=== PATIENT | female | born 1960 | race Caucasian/White ===

== ENCOUNTER 2017-10-14 16:31 | Emergency (ER) | payer MEDICAID, OTHER ==
[2017-10-14 17:30] VITALS: BP 137/72
[2017-10-14] MEDS ORDERED: Ibuprofen TAB* 600 MG PO ONE (17:47)
--- NOTE | 2017-10-14 17:52 | UC ---
Lower Extremity/Ankle HPI - HPI Summary HPI Summary: 57 year old female with right medial ankle pain and swelling. No trauma. No excessive exercise. RIGHT FOOT PAIN , SWELLING FOR THREE DAYS. NO RECALL OF INJURY. PT ADDS HER RIGHT KNEE IS PAINFUL AND SWELLING OF HER LOWER LEG WELL. No relief from OTC meds. No recent travel. No previous DVT's or family history of concern. [ End ] - History of Current Complaint Chief Complaint: UCLowerExtremity Stated Complaint: RT ANKLE Time Seen by Provider: 10/14/17 17:16 Hx Obtained From: Patient Hx Last Menstrual Period: years ?: No Onset/Duration: Gradual Onset, Still Present Severity Initially: Moderate Severity Currently: Moderate Aggravating Factor(s): Standing, Ambulation Alleviating Factor(s): Rest Able to Bear Weight: Yes - Risk Factors DVT Risk Factors: Negative - Allergies/Home Medications Allergies/Adverse Reactions: Allergies Allergy/AdvReac Type Severity Reaction Status Date / Time Amoxicillin Allergy Intermediate Rash Verified 10/14/17 17:12 Sulfa Drugs Allergy Intermediate Rash Verified 10/14/17 17:12 Penicillins Allergy Nausea And Verified 10/14/17 17:12 Vomiting Home Medications: Home Medications Cholecalciferol [D 1000] 1,000 unit PO DAILY 10/14/17 [History Confirmed ] Hydrochlorothiazide [Microzide-] 12.5 mg PO DAILY 10/14/17 [History Confirmed ] PMH/Surg Hx/FS Hx/Imm Hx Previously Healthy: Yes Cardiovascular History: Hypertension - Surgical History Surgical History: Yes Surgery Procedure, Year, and Place: D&C's. C-Sections, 1990 1992, [facility] [place]olecystectomy, [facility]. Partial Hysterectomy, 2004, [facility] [place] - Family History Known Family History: Positive: None, Hypertension - Social History Alcohol Use: None Substance Use Type: None Smoking Status (MU): Never Smoked Tobacco - Immunization History Most Recent Influenza Vaccination: no Review of Systems Musculoskeletal: Other: - right medial ankle swelling and pain All Other Systems Reviewed And Are Negative: Yes Physical Exam Triage Information Reviewed: Yes Appearance: Well-Appearing, No Pain Distress, Well-Nourished Vital Signs: Initial Vital Signs Temp 98.8 F 10/14/17 17:14 Pulse 69 10/14/17 17:14 Resp 18 10/14/17 17:14 BP 137/72 10/14/17 17:14 Pulse Ox 100 10/14/17 17:14 Vital Signs Reviewed: Yes Respiratory Exam: Normal Cardiovascular Exam: Normal Musculoskeletal: Positive: Strength Intact, ROM Intact, Edema @ - trace non pitting edema right medial ankle with minimal tenderness to palpation medial distal tib/fib. no redness. neg homans. no streaking. no discharge. no bruising. Neurological Exam: Normal Psychological Exam: Normal Skin Exam: Normal Lower Extremity Course/Dx - Course Course Of Treatment: Discussed with the nature of the swelling I would like to order sono to ensure no DVT but not available at this time. I advised to go to ED to have done but patient refused and did not want wait there. Xray neg at this time. Treat with NSAIDs, compression stockings and f/u with PCP in the am for follow up for eval. If can not get in with PCP the return here if pain and swelling not improved to discuss potential sono here if warranted. She has no red flags and denies CP, [place], CP. If develops these she is awre to go to ED. Discussed the CCB causing this and will also discuss with PCP if other causes ruled out. - Differential Dx/Diagnosis Differential Diagnosis/HQI/PQRI: DVT, Sprain, Strain, Tendonitis Provider Diagnoses: Right Ankle pain Discharge - Discharge Plan Condition: Good Disposition: HOME Prescriptions: Ibuprofen TAB* [Motrin TAB* 600 MG] 600 mg PO Q6H PRN #30 tab PRN Reason: Pain Patient Education Materials: Swollen Joint (ED) Referrals: Lianne Alba [Primary Care Provider] - 1 Day Additional Instructions: xray today : IMPRESSION: NO ACUTE OSSEOUS INJURY. IF SYMPTOMS PERSIST, RECOMMEND REPEAT IMAGING Please use compression stockings as well. As we discussed if the symptom worsen please go to the Emergency Room
--- NOTE | 2017-10-14 18:16 | RAD ---
HISTORY: Right ankle pain COMPARISONS: None VIEWS: 3, Frontal, lateral, and oblique views of the right ankle FINDINGS: BONE DENSITY: Normal. BONES: There is no displaced fracture. There is a plantar calcaneal enthesophyte. JOINTS: There is no arthropathy. ALIGNMENT: There is no dislocation. SOFT TISSUES: Unremarkable. OTHER FINDINGS: None. IMPRESSION: NO ACUTE OSSEOUS INJURY. IF SYMPTOMS PERSIST, RECOMMEND REPEAT IMAGING.
== END 2017-10-14 18:38 | disposition home or self-care (01) ==
LOC: UCCORT 16:31
DX: M25.571 Pain in right ankle and joints of right foot (principal); X58.XXXA Exposure to other specified factors, initial encounter; Y92.9 Unspecified place or not applicable; I10 Essential (primary) hypertension
CPT/HCPCS: 99212; A9270-GY; G0463

== ENCOUNTER 2017-10-19 13:47 | Emergency (ER) | payer OTHER ==
[2017-10-19 14:23] VITALS: BP 132/72
--- NOTE | 2017-10-19 15:02 | UC ---
Lower Extremity/Ankle HPI - HPI Summary HPI Summary: 57 year old female presents with complains of severe right calf swelling. I will send her to the er to rule out DVT. - History of Current Complaint Chief Complaint: UCLowerExtremity Stated Complaint: RIGHT ANKLE INJURY Time Seen by Provider: 10/19/17 15:02 Hx Obtained From: Patient Hx Last Menstrual Period: years Onset/Duration: Sudden Onset Severity Initially: Moderate Severity Currently: Moderate Pain Scale Used: 0-10 Numeric - 7 Aggravating Factor(s): Standing Alleviating Factor(s): Rest, Elevation - Allergies/Home Medications Allergies/Adverse Reactions: Allergies Allergy/AdvReac Type Severity Reaction Status Date / Time Amoxicillin Allergy Intermediate Rash Verified 10/19/17 14:23 Sulfa Drugs Allergy Intermediate Rash Verified 10/19/17 14:23 Penicillins Allergy Nausea And Verified 10/19/17 14:23 Vomiting PMH/Surg Hx/FS Hx/Imm Hx Previously Healthy: Yes - Surgical History Surgical History: Yes Surgery Procedure, Year, and Place: D&C's. C-Sections, 1990 1992, [facility] [place]. Cholecystectomy, [facility]. Partial Hysterectomy, 2004, [facility] [place] - Family History Known Family History: Positive: None, Hypertension - Social History Alcohol Use: None Substance Use Type: None Smoking Status (MU): Never Smoked Tobacco - Immunization History Most Recent Influenza Vaccination: no Review of Systems Constitutional: Negative Skin: Negative Eyes: Negative ENT: Negative Respiratory: Negative Cardiovascular: Negative Gastrointestinal: Negative Genitourinary: Negative Motor: Negative Neurovascular: Negative Musculoskeletal: Calf Tenderness, Other: - RIGHT CALF SWELLING Neurological: Negative Psychological: Negative All Other Systems Reviewed And Are Negative: Yes Physical Exam Triage Information Reviewed: Yes Vital Signs: Initial Vital Signs Temp 37.1 C 10/19/17 14:18 Pulse 69 10/19/17 14:18 Resp 18 10/19/17 14:18 BP 132/72 10/19/17 14:18 Pulse Ox 100 10/19/17 14:18 Vital Signs Reviewed: Yes Eye Exam: Normal ENT Exam: Normal Dental Exam: Normal Neck exam: Normal Neck: Positive: 1 Respiratory Exam: Normal Cardiovascular Exam: Normal Abdominal Exam: Normal Musculoskeletal: Positive: Other: - RIGHT CALF SWELLING Neurological Exam: Normal Psychological Exam: Normal Skin Exam: Normal Lower Extremity Course/Dx - Differential Dx/Diagnosis Provider Diagnoses: RIGHT CALF SWELLING Discharge - Discharge Plan Condition: Stable Disposition: OTHER Discharge Disposition Comment: PATIENT SUGGESTED TO GO TO THE ER Patient Education Materials: Deep Venous Thrombosis (ED) Referrals: Lianne Alba [Primary Care Provider] - Additional Instructions: patient suggested to go to the er to rule out dvt
== END 2017-10-19 15:16 ==
LOC: UCCORT 13:47
DX: M79.89 Other specified soft tissue disorders (principal); Z88.3 Allergy status to other anti-infective agents; Z88.0 Allergy status to penicillin; Z88.2 Allergy status to sulfonamides
CPT/HCPCS: 99212; G0463

== ENCOUNTER 2019-05-27 12:55 | Emergency (ER) | payer OTHER ==
--- OUTSIDE RECORDS SUMMARY | 2019-05-27 13:10 | XMS REPORT | Continuity of Care Document ---
:1960 External Reference #:[id number] Author Name Maria Luisa Gardner Care Team Providers Name Role Phone Lianne Alba FNP Primary Care Physician Unavailable Payers Date Identification Numbers Payment Provider Subscriber Policy Number: [id number] [place] PayID: [id number] [address] [place] [address] Family History Date Family Member(s) Observation Comments General Heart Disease General Hypertension Father Heart Disease Mother Hypertension Social History Type Date Description Comments Sex Unknown Lives With Children Lives With Boyfriend Occupation Unemployed Tobacco Use Start: Unknown Never Smoked Cigarettes Smoking Status Reviewed: 05/15/19 Never Smoked Cigarettes ETOH Use Denies alcohol use Tobacco Use Start: Unknown Patient has never smoked Recreational Drug Use Never Used Drugs Exercise Type/Frequency Exercises regularly Allergies, Adverse Reactions, Alerts Active Allergies Reaction Severity Comments Date Penicillin 11/24/2017 Amoxicillin 11/24/2017 Sulfa Antibiotics 11/24/2017 Medications Active Medications SIG Qnty Indications Ordering Provider Date Ibuprofen as needed Unknown 600mg Tablets Amlodipine Besylate 1 by mouth every 90tabs Digiovanna, day LUIS ENRIQUE Abdalla 10mg Tablets Vitamin D 2 by mouth every 90caps Unknown (Cholecalciferol) day 1000Unit Capsules Duloxetine HCL 1 cap by mouth Unknown 60mg daily Caps DR Part Venlafaxine HCL ER 1 cap by mouth Unknown 75mg daily Caps ER 24HR History Medications Hydrochlorothiazide 1 by mouth 90caps Digiovanna, - 12.5mg Capsules every day ALVARO AbdallaP 01/23/2019 Duloxetine HCL Unknown - 02/06/2019 Venlafaxine HCL Unknown - 02/06/2019 Vital Signs Date Vital Result Comment 05/15/2019 10:59am Height 64 inches 5'4" Weight 172.00 lb BP Systolic 132 mmHg BP Diastolic 82 mmHg Respiratory Rate 14 /min Body Temperature 96.9 F Pain Level 0 BMI (Body Mass Index) 29.5 kg/m2 04/03/2019 12:57pm Height 64 inches 5'4" Weight 172.00 lb Heart Rate 88 /min BP Systolic 124 mmHg BP Diastolic 70 mmHg Respiratory Rate 18 /min Pain Level 4 BMI (Body Mass Index) 29.5 kg/m2 03/06/2019 1:17pm Height 64 inches 5'4" Weight 172.00 lb Heart Rate 60 /min BP Systolic Sitting 148 mmHg BP Diastolic Sitting 104 mmHg Respiratory Rate 18 /min Pain Level 6 BMI (Body Mass Index) 29.5 kg/m2 02/10/2019 10:20am Height 64 inches 5'4" Weight 172.00 lb Heart Rate 96 /min BP Systolic Sitting 154 mmHg BP Diastolic Sitting 92 mmHg Respiratory Rate 16 /min Pain Level 6 O2 % BldC Oximetry 98 % BMI (Body Mass Index) 29.5 kg/m2 01/24/2019 4:12pm Height 64 inches 5'4" Weight 171.00 lb Heart Rate 68 /min BP Systolic 134 mmHg BP Diastolic 90 mmHg Body Temperature 97.3 F Pain Level 5 BMI (Body Mass Index) 29.3 kg/m2 04/27/2018 11:29am Height 64 inches 5'4" Heart Rate 64 /min BP Systolic 146 mmHg BP Diastolic 98 mmHg Respiratory Rate 16 /min Pain Level 0 O2 % BldC Oximetry 98 % 01/26/2018 11:50am Height 64 inches 5'4" Weight 180.00 lb Heart Rate 72 /min BP Systolic Sitting 140 mmHg BP Diastolic Sitting 80 mmHg Respiratory Rate 18 /min Pain Level 4 BMI (Body Mass Index) 30.9 kg/m2 12/29/2017 10:30am Height 64 inches 5'4" Weight 180.00 lb Heart Rate 60 /min BP Systolic Sitting 124 mmHg BP Diastolic Sitting 74 mmHg Respiratory Rate 18 /min Pain Level 4 BMI (Body Mass Index) 30.9 kg/m2 11/24/2017 11:09am Height 64 inches 5'4" Weight 180.00 lb Heart Rate 72 /min BP Systolic Sitting 126 mmHg BP Diastolic Sitting 76 mmHg Respiratory Rate 16 /min Pain Level 5 BMI (Body Mass Index) 30.9 kg/m2 Procedures Date Code Description Status 02/10/2019 05520 Rad Exam; Hand Comp Completed 01/24/2019 26318 Short Arm Splint Application Completed Encounters Type Date Location Provider Dx Diagnosis Office Visit 04/03/2019 Orthopedic Kassandra Huang, S62.644D Nondisp fx of 1:00p [facility] Of [facility] Whiting prox phalanx of r rng fngr, 7thD S62.652D Nondisp fx of middle phalanx of right middle finger, 7thD Office Visit 03/06/2019 1:15p Orthopedic Kassandra Huang S62.644D Nondisp fx of Services Of Johanne prox phalanx C.M.A. of r rng fngr, 7thD S62.652D Nondisp fx of middle phalanx of right middle finger, 7thD Office Visit 02/10/2019 10:00a Orthopedic Aravind S63.612A Unspecified Services Of Dalila Valle MD sprain of right AT [place] middle finger, initial encounter S62.644D Nondisp fx of prox phalanx of r rng fngr, 7thD M79.641 Pain in right hand Office Visit 01/24/2019 3:30p Orthopedic Aravind S62.644A Nondisp fx of Services Of MD Tori proximal C.M.A. phalanx of right ring finger, init Office Visit 04/27/2018 11:15a Orthopedic Aravind Bar76.821 Posterior Services Of Dalila Velazco M.D. tibial AT [place] tendinitis, right leg Office Visit 01/26/2018 11:45a Orthopedic Aravind [id number] Posterior [facility] Of Dalila Velazco M.D. tibial AT [place] tendinitis, right leg Office Visit 12/29/2017 10:30a Orthopedic Aravind [id number] Posterior Services Of Dalila Velazco M.D. tibial AT [place] tendinitis, right leg Office Visit 11/24/2017 10:30a Orthopedic Aravind [id number] Posterior Services Of Dalila Velazco M.D. tibial [place] tendinitis, right leg Plan of Treatment 04/03/2019 - Kassandra Huang M.D.S62.644D Nondisplaced fracture of proximal phalanx of right ring fingFollow up:Follow up: 6-8 [id number] Nondisplaced fracture of middle phalanx of right middle fing
[2019-05-27 13:16] VITALS: BP 166/84
--- NOTE | 2019-05-27 13:29 | UC ---
Respiratory Complaint HPI - HPI Summary HPI Summary: One week history of cough without production, with sense of tightness in the upper chest, with mild shortness of breath with exertion. No fever, some chills and malaise. Off and on headache, but no sore throat or ear pain. - History of Current Complaint Chief Complaint: UCRespiratory Stated Complaint: COUGH Time Seen by Provider: 05/27/19 13:21 Hx Obtained From: Patient Hx Last Menstrual Period: years ?: No Onset/Duration: Gradual Onset, Lasting Days - 7 Timing: Intermittent Episodes Severity Initially: Mild Severity Currently: Moderate Pain Intensity: 0 Character: Cough: Nonproductive Aggravating Factors: Exertion, Deep Breaths Alleviating Factors: Nothing - mucinex did not help her. Associated Signs And Symptoms: Positive: Dyspnea, Chills, Hoarseness - Risk Factors Pulmonary Embolism Risk Factors: Negative Cardiac Risk Factors: Hypertension Pseudomonas Risk Factors: Negative Tuberculosis Risk Factors: Negative - Allergies/Home Medications Allergies/Adverse Reactions: Allergies Allergy/AdvReac Type Severity Reaction Status Date / Time amoxicillin Allergy Rash Verified 05/27/19 13:16 Penicillins Allergy Nausea And Verified 05/27/19 13:16 Vomiting Sulfa (Sulfonamide Allergy Rash Verified 05/27/19 13:16 Antibiotics) Home Medications: Home Medications Aspirin/Acetaminophen/Caffeine [Excedrin Migraine Caplet] 2 each PO ONCE PRN [History Confirmed 05/27/19] PMH/Surg Hx/FS Hx/Imm Hx Previously Healthy: Yes Cardiovascular History: Hypertension - well controlled; has not taken her meds x 2 days because of feeling unwell. - Surgical History Surgical History: Yes Surgery Procedure, Year, and Place: D&C's. C-Sections, 1990 1992, [facility] [place]. Cholecystectomy, [facility]. Partial Hysterectomy, 2004, [facility] [place] - Family History Known Family History: Positive: Hypertension - Social History Occupation: Works From/At Home Lives: With Family Alcohol Use: None Substance Use Type: None Smoking Status (MU): Never Smoked Tobacco - Immunization History Most Recent Influenza Vaccination: no Review of Systems All Other Systems Reviewed And Are Negative: Yes Constitutional: Positive: Fatigue Respiratory: Positive: Shortness Of Breath - mild, with stair climbing, Cough Cardiovascular: Positive: Other - treated hypertension. Negative: Palpitations , Chest Pain Genitourinary: Positive: Negative Motor: Positive: Negative Neurological: Positive: Headache Is Patient Immunocompromised?: No Physical Exam Triage Information Reviewed: Yes Appearance: Ill-Appearing - lookd fatigued and mildly unwell Vital Signs: Initial Vital Signs Temp 98.3 F 05/27/19 13:10 Pulse 73 05/27/19 13:10 Resp 16 05/27/19 13:10 BP 166/84 05/27/19 13:10 Pulse Ox 99 05/27/19 13:10 Eyes: Positive: Conjunctiva Clear ENT: Positive: Pharynx normal, TMs normal Neck: Positive: Supple, Nontender, No Lymphadenopathy Respiratory: Positive: Decreased breath sounds, Rhonchi - coarse breath sounds both upper lung camacho. Negative: Wheezing Cardiovascular: Positive: RRR, No Murmur Musculoskeletal Exam: Normal Neurological Exam: Normal Neurological: Positive: Alert Psychological Exam: Normal Skin Exam: Normal Respiratory Course/Dx - Course Course Of Treatment: azithrmycin for suspected early pneumonia. Chest xray deferred (no fever, normal sats). Cough suppressants as needed. - Differential Dx/Diagnosis Differential Diagnosis/HQI/PQRI: Bronchitis, Lower Resp Infection Provider Diagnosis: Lower respiratory infection Discharge - Sign-Out/Discharge Documenting (check all that apply): Patient Departure All imaging exams completed and their final reports reviewed: No Studies - Discharge Plan Condition: Stable Disposition: HOME Prescriptions: Azithromyxin IRINA (NF) [Z-Irina (Zithromax) 250 mg tabs #6] 2 tab PO .TODAY, THEN 1 DAILY #6 tab Patient Education Materials: Bacterial Pneumonia (ED) Referrals: Lianne Alba [Primary Care Provider] - Additional Instructions: The duration of illness and the sounds in your lungs suggest a pneumonia. Your oxygen exchange and breathing rate are normal. Begin azithromycin for treatment, and follow up for reassessment if you develop fever, increased shortness of breath, or do no see improvement within 3 or 4 days. - Billing Disposition and Condition Condition: STABLE Disposition: Home
== END 2019-05-27 13:54 | disposition home or self-care (01) ==
LOC: UCCORT 12:55
DX: J06.9 Acute upper respiratory infection, unspecified (principal); Z88.0 Allergy status to penicillin; Z88.2 Allergy status to sulfonamides; I10 Essential (primary) hypertension; Z91.14 Patient's other noncompliance with medication regimen
CPT/HCPCS: 99212; G0463

== ENCOUNTER 2019-06-15 09:58 | Emergency (ER) | payer OTHER ==
[2019-06-15 10:24] VITALS: BP 152/88
--- NOTE | 2019-06-15 10:38 | UC ---
Respiratory Complaint HPI - HPI Summary HPI Summary: 59-year-old female who was treated with a Z-Issa for possible early pneumonia on 05/27/19. She states she feels like she got better but not 100% and over the past couple of days and developed a nonproductive cough. She denies any shortness of breath. No fever or chills. She Is a nonsmoker. - History of Current Complaint Chief Complaint: UCRespiratory Stated Complaint: RECHECK-PNUEMONIA Time Seen by Provider: 06/15/19 10:31 Hx Obtained From: Patient Hx Last Menstrual Period: years ?: No Onset/Duration: Gradual Onset Timing: Constant Severity Initially: Mild Severity Currently: Mild Pain Intensity: 0 Character: Cough: Nonproductive Aggravating Factors: Nothing Alleviating Factors: Nothing Associated Signs And Symptoms: Positive: Negative - Allergies/Home Medications Allergies/Adverse Reactions: Allergies Allergy/AdvReac Type Severity Reaction Status Date / Time amoxicillin Allergy Rash Verified 06/15/19 10:19 Penicillins Allergy Nausea And Verified 06/15/19 10:19 Vomiting Sulfa (Sulfonamide Allergy Rash Verified 06/15/19 10:19 Antibiotics) Home Medications: Home Medications Ibuprofen TAB* [Motrin TAB* 400 MG] 400 mg PO Q6H PRN 06/15/19 [History Confirmed 06/15/19] PMH/Surg Hx/FS Hx/Imm Hx Previously Healthy: Yes Cardiovascular History: Hypertension - Surgical History Surgical History: Yes Surgery Procedure, Year, and Place: D&C's. C[place] 1990 [place] [facility] [place] [facility]. [place] [facility] [place] - Family History Known Family History: Positive: None, Hypertension - Social History Alcohol Use: None Substance Use Type: None Smoking Status (MU): Never Smoked Tobacco - Immunization History Most Recent Influenza Vaccination: no Review of Systems All Other Systems Reviewed And Are Negative: Yes Respiratory: Positive: Cough - Nonproductive cough. Is Patient Immunocompromised?: No Physical Exam Triage Information Reviewed: Yes Appearance: Well-Appearing, No Pain Distress, Well-Nourished Vital Signs: Initial Vital Signs Temp 99.2 F 06/15/19 10:19 Pulse 69 06/15/19 10:19 Resp 16 06/15/19 10:19 BP 152/88 06/15/19 10:19 Pulse Ox 100 06/15/19 10:19 Vital Signs Reviewed: Yes Eyes: Positive: Conjunctiva Clear ENT: Positive: Hearing grossly normal, Pharynx normal, TMs normal, Uvula midline Neck: Positive: Supple, Nontender, No Lymphadenopathy Respiratory: Positive: Lungs clear, Normal breath sounds, No respiratory distress, No accessory muscle use Cardiovascular: Positive: RRR, No Murmur, Pulses Normal, Brisk Capillary Refill Musculoskeletal: Positive: Strength Intact, ROM Intact Neurological: Positive: Alert, Muscle Tone Normal Psychological Exam: Normal Skin Exam: Normal Respiratory Course/Dx - Course Course Of Treatment: Chest x-ray:FINDINGS: CARDIOMEDIASTINAL SILHOUETTE: The cardiomediastinal silhouette is normal. YARELY: The yarely are normal. PLEURA: The costophrenic angles are sharp. No pleural abnormalities are noted. LUNG PARENCHYMA: There is hyperinflation with flattening of the diaphragm and expansion of the AP diameter of the chest. ABDOMEN: The upper abdomen is clear. There is no subphrenic gas. BONES AND SOFT TISSUES: No bone or soft tissue abnormalities are noted. OTHER: None. IMPRESSION: HYPERINFLATION, CONSISTENT WITH COPD. NO ACTIVE CARDIOPULMONARY DISEASE. The patient opted not to have a prednisone taper but rather a few days of prednisone and then follow-up with her primary care provider to pursue the diagnosis of COPD. She has never been a smoker nor has she been exposed to feels or secondhand smoke. - Differential Dx/Diagnosis Provider Diagnosis: Bronchitis Discharge - Sign-Out/Discharge Documenting (check all that apply): Patient Departure All imaging exams completed and their final reports reviewed: Yes - Discharge Plan Condition: Good Disposition: HOME Prescriptions: predniSONE [Prednisone 20 MG TAB] 40 mg PO DAILY 5 Days #10 tablet Patient Education Materials: Acute Bronchitis (ED), COPD (Chronic Obstructive Pulmonary Disease) (DC) Referrals: Lianne Alba [Primary Care Provider] - Additional Instructions: Increase fluids, take the prednisone with food, follow-up with your primary care provider for further follow-up of the diagnosis of COPD. If you develop fever, chills, productive cough, shortness of breath and go to the emergency room for further treatment. - Billing Disposition and Condition Condition: GOOD Disposition: Home
== END 2019-06-15 11:05 | disposition home or self-care (01) ==
LOC: UCCORT 09:58
DX: J40 Bronchitis, not specified as acute or chronic (principal); I10 Essential (primary) hypertension
CPT/HCPCS: 71046; 99212; G0463